=== PATIENT | female | born 2000 | race Two or more races ===

== ENCOUNTER 2021-04-25 15:16 | Emergency (ER) | payer OTHER ==
[~2021-04-25] VITALS: Ht 157.5 cm; Wt 83.0 kg
[2021-04-25 19:11] VITALS: BP 146/85
== END 2021-04-25 19:24 | disposition home or self-care (01) ==
LOC: ER 15:16
DX: J02.9 Acute pharyngitis, unspecified (principal); R05.9 Cough, unspecified; R51.9 Headache, unspecified; R09.81 Nasal congestion; M79.10 Myalgia, unspecified site; R53.83 Other fatigue